=== PATIENT | male | born 1995 | race African-American/Black ===

== ENCOUNTER 2019-01-16 08:25 | Emergency (ER) | payer MEDICAID ==
[~2019-01-16] VITALS: Ht 177.8 cm; Wt 80.0 kg
[2019-01-16] MEDS ORDERED: LIDOCAINE HCL/EPINEPHRINE 1%-EPI 1:100,000 30 ML VIAL INFIL ONE (09:00)
[2019-01-16 09:46] LABS: BASOPHILS % 0.5 % (0.0-2.0); EOSINOPHILS % 0.8 % (0.0-5.0); HEMOGLOBIN. 13.4 g/dL (14.0-18.0); LYMPHOCYTES % 14.8 % (20.0-50.0); MEAN CORPUSCULAR VOLUME 89.6 fL (80.0-94.0); MEAN PLATELET VOLUME 8.3 fl (7.4-10.4); NEUTROPHILS % 74.9 % (40.0-76.0); PLATELET 293 x1000/uL (130-400); RED BLOOD CELL COUNT 4.46 mill/uL (4.7-6.1); RED CELL DISTRIBUTION WIDTH 13.5 % (11.6-14.6)
[2019-01-16 09:52] LABS: CHLORIDE 112 mEq/L (98-107)
[2019-01-16 09:56] LABS: ETHANOL BLOOD < 10 mg/dL
[2019-01-16 12:30] VITALS: BP 118/71
== END 2019-01-16 12:43 | disposition home or self-care (01) ==
LOC: ER 08:35
DX: R07.9 Chest pain, unspecified (principal); S21.119A Laceration without foreign body of unspecified front wall of thorax without penetration into thoracic cavity, initial encounter; S11.91XA Laceration without foreign body of unspecified part of neck, initial encounter; F41.9 Anxiety disorder, unspecified; F32.9 Major depressive disorder, single episode, unspecified; X58.XXXA Exposure to other specified factors, initial encounter; Y93.89 Activity, other specified; Y92.9 Unspecified place or not applicable
CPT/HCPCS: 12004; 36415; 71045; 80307; 80320; 80329; 83880; 84484; 93005; 99284; G0480

== ENCOUNTER 2021-02-26 15:51 | Emergency (ER) | payer MEDICAID ==
[~2021-02-26] VITALS: Ht 182.9 cm; Wt 86.0 kg
[2021-02-26] MEDS ORDERED: CLIN60GE5 TP (17:09)
[2021-02-26] MEDS ORDERED: DOXY100T2 MT (17:09)
[2021-02-26] MEDS ORDERED: IBUP-2030 MT (17:10)
[2021-02-26 17:20] VITALS: BP 140/80
== END 2021-02-26 17:39 | disposition home or self-care (01) ==
LOC: ER 15:51
DX: L73.2 Hidradenitis suppurativa (principal); F32.9 Major depressive disorder, single episode, unspecified; F41.9 Anxiety disorder, unspecified; Z98.890 Other specified postprocedural states
CPT/HCPCS: 99283

== ENCOUNTER 2023-10-24 14:11 | Emergency (ER) | payer MEDICAID ==
[~2023-10-24] VITALS: Ht 177.8 cm; Wt 89.0 kg
[~2023-10-24 14:11] MED LIST: CLIN60GE5 TP; DOXY100T2 MT; IBUP-2030 MT
[2023-10-24 14:20] VITALS: O2SAT 100
[2023-10-24 15:57] VITALS: TEMP 98
[2023-10-24 16:08] VITALS: BP 132/64; PULSE 85; RESP 19
[2023-10-24] MEDS: IBUPROFEN 600MG TABLET PO ONE (16:08)
[2023-10-24] MEDS ORDERED: IBUP-2029 MT (16:11)
== END 2023-10-24 16:21 | disposition home or self-care (01) ==
LOC: ER 14:11
DX: M25.551 Pain in right hip (principal); M25.552 Pain in left hip; M25.561 Pain in right knee; V87.8XXA Person injured in other specified noncollision transport accidents involving motor vehicle (traffic), initial encounter; Y93.89 Activity, other specified; Y92.89 Other specified places as the place of occurrence of the external cause; Y99.8 Other external cause status
CPT/HCPCS: 73522; 73562; 99284

== ENCOUNTER 2025-03-17 08:07 | Emergency (ER) | payer MEDICAID ==
[~2025-03-17] VITALS: Ht 180.3 cm; Wt 85.0 kg
[~2025-03-17 08:07] MED LIST changes: +IBUP-1455 MT
[2025-03-17 08:24] VITALS: O2SAT 100
[2025-03-17] MEDS: TRAMADOL 50MG TABLET PO ONE (08:48)
[2025-03-17] MEDS: IBUPROFEN 600MG TABLET PO ONE (08:49)
[2025-03-17] MEDS ORDERED: NAPR-1486 MT (09:13)
[2025-03-17] MEDS ORDERED: AMOX1TAB16 MT (09:13)
[2025-03-17] MEDS ORDERED: OFLO5DRO4 RIGHT EAR (09:13)
[2025-03-17 09:21] VITALS: BP 120/79; PULSE 84; RESP 16; TEMP 36.7; O2SAT 100
== END 2025-03-17 09:22 | disposition home or self-care (01) ==
LOC: ER 08:07
DX: H66.91 Otitis media, unspecified, right ear (principal)
CPT/HCPCS: 99283